=== PATIENT | male | born 1940 | race Caucasian/White ===

== ENCOUNTER 2019-04-09 16:49 | Emergency (ER) | payer MEDICARE ==
[2019-04-09] MEDS ORDERED: LIDOCAINE HCL 1% 20 ML VIAL ONE (17:07)
[2019-04-09] MEDS ORDERED: TETANUS/DIPHTHERIA TOXOID [ADULT] 0.5 ML VIAL IM ONE (17:08)
== END 2019-04-09 20:19 | disposition home or self-care (01) ==
LOC: EDH 16:49
DX: S62.654A Nondisplaced fracture of middle phalanx of right ring finger, initial encounter for closed fracture (principal); S12.110A Anterior displaced Type II dens fracture, initial encounter for closed fracture; S63.284D Dislocation of proximal interphalangeal joint of right ring finger, subsequent encounter; I10 Essential (primary) hypertension; E11.9 Type 2 diabetes mellitus without complications; Z90.49 Acquired absence of other specified parts of digestive tract; Z98.890 Other specified postprocedural states; W18.39XA Other fall on same level, initial encounter; Y93.01 Activity, walking, marching and hiking; Y92.89 Other specified places as the place of occurrence of the external cause; Y99.8 Other external cause status
CPT/HCPCS: 26742; 70450; 72125; 73130; 73140; 90471; 90714